=== PATIENT | female | born 1970 | race Hispanic/Latino ===

== ENCOUNTER 2021-02-12 00:29 | Emergency (ER) | payer OTHER ==
[~2021-02-12] VITALS: Ht 167.6 cm; Wt 74.8 kg
[~2021-02-12 00:29] MED LIST: CAPTOPRIL12.5 MG PO; COZAAR100 MG PO
[2021-02-12] MEDS ORDERED: KETOROLAC TROMETHAMINE 30 MG/ML VIAL IV STA (00:40)
[2021-02-12 01:30] LABS: BASOPHILS # (AUTO) 0.1 (0.0-0.1); BASOPHILS % 1.1 % (0.0-1.0); EOSINOPHILS # (AUTO) 0.1 (0.0-0.4); EOSINOPHILS % 1.7 % (0.0-6.0); HEMATOCRIT 39.9 % (34.2-44.1); HEMOGLOBIN 12.9 g/dL (12.0-16.0); LYMPHOCYTES # (AUTO) 2.7 (1.0-3.2); LYMPHOCYTES % 32.1 % (18.0-39.1); MEAN CORPUSCULAR HEMOGLOBIN 26.5 pg (28-32); MEAN CORPUSCULAR HGB CONC 32.3 g/dL (31-35); MEAN CORPUSCULAR VOLUME 82.1 fL (81-99); MONOCYTES # (AUTO) 0.7 (0.2-0.8); MONOCYTES % 8.6 % (4.4-11.3); NEUTROPHILS # (AUTO) 4.7 (2.1-6.9); NEUTROPHILS % 55.8 % (38.7-80.0); PLATELET COUNT 427 x10e3/uL (140-360); RED BLOOD COUNT 4.86 x10e6/uL (3.6-5.1); RED CELL DISTRIBUTION WIDTH 14.2 % (11.7-14.4)
[2021-02-12 01:41] LABS: ALANINE AMINOTRANSFERASE 117 IU/L (0-55); ALBUMIN/GLOBULIN RATIO 1.2 (0.8-2.0); ALKALINE PHOSPHATASE 185 IU/L (40-150); ANION GAP 15.9 mmol/L (8-16); BLOOD UREA NITROGEN 11 mg/dL (7-26); BUN/CREATININE RATIO 16 (6-25); CALCIUM 8.9 mg/dL (8.4-10.2); CARBON DIOXIDE 26 mmol/L (22-29); CHLORIDE 107 mmol/L (98-107); CREATINE KINASE 147 IU/L (29-168); EST GLOMERULAR FILTRATION RATE > 60 ML/MIN (60-); GLUCOSE 93 mg/dL (74-118); POTASSIUM 3.9 mmol/L (3.5-5.1); SODIUM 145 mmol/L (136-145)
[2021-02-12 02:17] LABS: AMYLASE 55 U/L (25-125); LIPASE 36 U/L (8-78)
[2021-02-12] MEDS ORDERED: SODIUM CHLORIDE 0.9% 50ML 50 ML ONE (03:57)
[2021-02-12] MEDS ORDERED: IOPAMIDOL 370 MG/ML 200 ML INFUS..BTL INJ ONE (03:57)
== END 2021-02-12 04:32 | disposition home or self-care (01) ==
LOC: ER 00:40
DX: R07.89 Other chest pain (principal); R06.00 Dyspnea, unspecified; R10.12 Left upper quadrant pain; K76.0 Fatty (change of) liver, not elsewhere classified
CPT/HCPCS: 36415; 71045; 74177; 80053; 82150; 82550; 82553; 83690; 84484; 85025; 85379; 93005; 99284; J1885; Q9967

== ENCOUNTER 2025-07-23 23:45 | Emergency (ER) | payer OTHER ==
[~2025-07-23] VITALS: Ht 152.4 cm; Wt 78.0 kg
[2025-07-24 00:16] VITALS: PULSE 124; RESP 19; TEMP 102.9
[2025-07-24] MEDS: DEXAMETHASONE SOD PHOS 10 MG/1 ML VIAL IM ONE (00:26)
[2025-07-24] MEDS: ACETAMINOPHEN 325 MG TAB PO STA (00:27)
[2025-07-24] MEDS: KETOROLAC TROMETHAMINE 60 MG/2 ML VIAL IM STA (00:28)
[2025-07-24 00:55] LABS: CORONAVIRUS COVID-19 AG POSITIVE (NEGATIVE)
[2025-07-24] MEDS ORDERED: TAMIFLU75 MG PO (01:00)
[2025-07-24] MEDS ORDERED: PAXLOVID 300-11 EAC1 PO (01:00)
[2025-07-24 01:03] LABS: STREPTOCOCCUS GRP A ANTIGEN NEGATIVE (NEGATIVE)
[2025-07-24 01:49] VITALS: BP 121/65; PULSE 106; RESP 16; TEMP 99.9; O2SAT 97
== END 2025-07-24 01:50 | disposition home or self-care (01) ==
LOC: ER 23:49
DX: R50.9 Fever, unspecified (principal); U07.1 COVID-19; J10.1 Influenza due to other identified influenza virus with other respiratory manifestations; I10 Essential (primary) hypertension; R53.81 Other malaise
CPT/HCPCS: 83518; 87070; 87428; 99283; J1100; J1885